=== PATIENT | female | born 1955 | race African-American/Black ===

== ENCOUNTER 2021-05-13 00:19 | Observation (INO) | payer OTHER, SELFPAY ==
[2021-05-13] MEDS ORDERED: Ondansetron PF 4 MG/2 ML Vial ONE (00:24)
[2021-05-13] MEDS ORDERED: Meclizine HCl 25 MG TAB ONE (00:49)
[2021-05-13 01:09] LABS: #Basophils 0.1 10x3/uL (0.0-0.2); #Eosinphils 0.1 10x3/uL (0.0-0.5); #Monocytes 0.8 10x3/uL (0.0-1.1); #Neutrophils 2.6 10x3/uL (1.5-8.4); %Basophils 0.6 % (0.0-2.0); %Lymphocytes 54.7 % (18.0-47.0); %Monocytes 9.6 % (0.0-10.0); %Neutrophils 33.1 % (40.0-75.0); Hemoglobin 11.9 g/dL (12.0-15.5); Mean Corpuscular HGB CONC 31.8 g/dL (32.0-36.0); Mean Corpuscular Hemoglobin 28.5 pg (27.0-33.0); Mean Corpuscular Volume 89.7 fl (81.6-98.3); Mean Platelet Volume 10.3 fl (7.4-10.4); Platelet Count 202 10x3/uL (150-450); RBC Distribution Width 13.2 % (11.5-14.5); Red Blood Cell (RBC) Count 4.17 10x6/uL (3.90-5.03); White Blood Cell (WBC) Count 7.9 10x3/uL (3.5-10.5)
[2021-05-13 01:20] LABS: ALT (SGPT) 13 U/L (8-55); AST (SGOT) 11 U/L (5-34); Albumin 3.8 g/dL (3.4-4.8); Alkaline Phosphatase 62 U/L (40-110); Anion Gap 12 mmol/L (10-20); BUN (Urea Nitrogen) 18 mg/dL (9.8-20.1); Bilirubin, Total 0.2 mg/dL (0.2-1.2); Calc. Creatinine Clearance 0 mL/min (70-130); Calcium 9.1 mg/dL (7.8-10.44); Carbon Dioxide 26 mmol/L (23-31); Chloride 109 mmol/L (98-107); Globulin 2.7 g/dL (2.4-3.5); Glucose 168 mg/dL (80-115); Potassium 3.5 mmol/L (3.5-5.1); Protein, Total 6.5 g/dL (5.8-8.1); Sodium 143 mmol/L (136-145)
[2021-05-13] MEDS ORDERED: Aspirin Chewable 81 MG TAB ONE (02:42)
[2021-05-13] MEDS ORDERED: Acetaminophen 325 MG TAB PO PRN (03:07)
[2021-05-13] MEDS ORDERED: NS 0.9% w/ 20 MEQ KCL 1,000 ML ONE ×2 (03:48→11:44)
[2021-05-13] MEDS: NS 0.9% w/ 20 MEQ KCL 1,000 ML/1,000 ML BAG IV SCH ×3 (04:00→20:24)
[2021-05-13 04:25] LABS: #Monocytes 0.7 10x3/uL (0.0-1.1); #Neutrophils 6.3 10x3/uL (1.5-8.4); %Basophils 0.5 % (0.0-2.0); %Eosinophils 0.1 % (0.0-6.0); %Lymphocytes 19.7 % (18.0-47.0); %Monocytes 7.5 % (0.0-10.0); %Neutrophils 71.6 % (40.0-75.0); Hemoglobin 12.4 g/dL (12.0-15.5); Mean Corpuscular HGB CONC 31.1 g/dL (32.0-36.0); Mean Corpuscular Hemoglobin 28.2 pg (27.0-33.0); Mean Corpuscular Volume 90.7 fl (81.6-98.3); Mean Platelet Volume 10.4 fl (7.4-10.4); Platelet Count 224 10x3/uL (150-450); RBC Distribution Width 13.2 % (11.5-14.5); White Blood Cell (WBC) Count 8.8 10x3/uL (3.5-10.5)
[2021-05-13 04:44] LABS: Anion Gap 13 mmol/L (10-20); BUN (Urea Nitrogen) 16 mg/dL (9.8-20.1); Calc. Creatinine Clearance 0 mL/min (70-130); Calcium 8.9 mg/dL (7.8-10.44); Carbon Dioxide 26 mmol/L (23-31); Cardiac Risk 4.2 (Less than 4.5); Chloride 108 mmol/L (98-107); Cholesterol 190 mg/dl (< 200 Desired); Glucose 134 mg/dL (80-115); HDL Cholesterol 45 mg/dL (>60 Neg Risk); LDL Cholesterol, Calculated 133 mg/dL; Magnesium 1.6 mg/dL (1.6-2.6); Potassium 3.9 mmol/L (3.5-5.1); Sodium 143 mmol/L (136-145); Triglycerides 58 mg/dL (Less than 150)
[2021-05-13 04:51] LABS: Troponin I Less than 0.010 ng/mL (< 0.028)
[2021-05-13] MEDS: Enoxaparin Sodium 40 MG/0.4 ML SYRINGE SC SCH (08:02)
[2021-05-13] MEDS: Aspirin 81 mg Enteric Coated Tablet PO SCH (08:02)
[2021-05-13] MEDS: Magnesium Oxide 400 MG TAB PO SCH (08:03)
[2021-05-13] MEDS ORDERED: Aspirin 81 mg Enteric Coated Tablet ONE (08:04)
[2021-05-13] MEDS ORDERED: Enoxaparin Sodium 40 MG/0.4 ML SYRINGE ONE (08:04)
[2021-05-13 12:30] LABS: Hemoglobin A1c 6.3 % (4.0-6.0)
[2021-05-13 12:47] VITALS: BMI 28.0
[2021-05-13 15:30] LABS: SARS-CoV-2 PCR by NAA Not Detected (NotDetected)
[2021-05-13] MEDS: Ondansetron PF 4 MG/2 ML Vial IVP PRN (22:40)
[2021-05-14] MEDS: NS 0.9% w/ 20 MEQ KCL 1,000 ML/1,000 ML BAG IV SCH ×2 (05:08→14:03)
[2021-05-14] MEDS: Enoxaparin Sodium 40 MG/0.4 ML SYRINGE SC SCH (08:37)
[2021-05-14] MEDS: Aspirin 81 mg Enteric Coated Tablet PO SCH (08:37)
[2021-05-14] MEDS: Magnesium Oxide 400 MG TAB PO SCH (08:37)
[2021-05-14] MEDS: Ondansetron PF 4 MG/2 ML Vial IVP PRN (11:45)
[2021-05-14] MEDS ORDERED: NS 0.9% w/ 20 MEQ KCL 1,000 ML ONE (14:03)
[2021-05-14] MEDS ORDERED: Promethazine HCl 25 MG/ML VIAL IVPB SCH ×2 (23:30)
[2021-05-15] MEDS ORDERED: Promethazine HCl 6.25 MG in Sodium Chloride 0.9% 50 ML IVPB SCH (00:30)
[2021-05-15] MEDS: NS 0.9% w/ 20 MEQ KCL 1,000 ML/1,000 ML BAG IV SCH ×4 (01:46→19:56)
[2021-05-15] MEDS: Magnesium Oxide 400 MG TAB PO SCH (09:49)
[2021-05-15] MEDS: Aspirin 81 mg Enteric Coated Tablet PO SCH (09:49)
[2021-05-15] MEDS: Enoxaparin Sodium 40 MG/0.4 ML SYRINGE SC SCH (09:49)
[2021-05-15] MEDS ORDERED: NS 0.9% w/ 20 MEQ KCL 1,000 ML ONE ×2 (09:59)
[2021-05-15] MEDS ORDERED: Meclizine HCl 25 MG TAB PO PRN (13:37)
[2021-05-15] MEDS ORDERED: Amlodipine 10 MG TAB PO SCH (14:00)
[2021-05-16] MEDS: NS 0.9% w/ 20 MEQ KCL 1,000 ML/1,000 ML BAG IV SCH (06:14)
[2021-05-16] MEDS: Enoxaparin Sodium 40 MG/0.4 ML SYRINGE SC SCH (07:45)
[2021-05-16] MEDS: Magnesium Oxide 400 MG TAB PO SCH (07:45)
[2021-05-16] MEDS ORDERED: Clopidogrel Bisulfate 75 MG TAB PO SCH (09:00)
[2021-05-16] MEDS ORDERED: Aspirin 81 mg Enteric Coated Tablet PO SCH (09:00)
[2021-05-16] MEDS ORDERED: Amlodipine 10 MG TAB PO SCH (09:00)
[2021-05-16 11:43] VITALS: BP 124/59; TEMP 97.9
== END 2021-05-16 13:38 | disposition home health service (06) ==
LOC: EDBD 00:19 → CSHERS 00:19 → CSHERHOLD 03:56 → INTOOBSV 03:56 → CSHTELE 14:32
PROVIDERS: ADMIT Family Medicine; ATTEND Internal Medicine
DX: R42 Dizziness and giddiness (principal); I65.02 Occlusion and stenosis of left vertebral artery; I16.0 Hypertensive urgency; R11.2 Nausea with vomiting, unspecified; Z20.822 Contact with and (suspected) exposure to COVID-19
CPT/HCPCS: 36415; 70450; 70496; 70498; 70553; 80053; 80061; 83036; 83735; 84484; 85025; 93005; 93010; 93306; 93880; 96372; 96374; 96375; 96376; G0378; J1650; J2405; J2550; J3480; U0003; U0005